=== PATIENT | male | born 1945 | race Caucasian/White ===

== ENCOUNTER 2017-10-17 14:47 | Inpatient (IN) | payer MEDICARE ==
[~2017-10-17] VITALS: Ht 177.8 cm; Wt 62.6 kg
[~2017-10-17 14:47] MED LIST: ASPIRIN EC81 MG PO; AZITHROMYCIN500 MG PO; BL ADULT ASA81 MG OR; CARDIO PO; CARVEDILOL3.125 MG PO; CARVEDILOL6.25 MG PO; COQ-1030 MG PO; FOLIC ACID1 MG PO; IBUPROFEN 200200 MG PO; OMEPRAZOLE20 MG PO; SAW PALMETTO450 MG PO; SIMVASTATIN40 MG PO; ZETIA10 MG OR; [UNRECOGNIZED DRUG - OTHER] PO
[2017-10-20] VITALS (7 sets, daily range): BP systolic 103–127; BP diastolic 50–86
[2017-10-20 10:29] LABS: HEMATOCRIT 37.1 % (39.0-50.0); HEMOGLOBIN 12.9 g/dl (14.0-18.0); IMMATURE GRANULOCYTES 0.3 % (0.0-1.0); MEAN CELL VOLUME 102.2 fL CALC (80.0-100.0); MEAN CORPUSCULAR HGB 35.5 pG CALC (26.0-32.0); MEAN CORPUSCULAR HGB CONC 34.8 g/L CALC (32.0-36.0); NEUT# 4.39 thou/uL (1.82-7.42); RED BLOOD COUNT 3.63 mill/uL (4.70-6.10); RED CELL DISTRI WIDTH 12.4 % (11.5-15.5)
[2017-10-20 10:45] LABS: ANION GAP 14 (6-22 (CALC)); BUN 24 mg/dL (8-23); BUN/CREATININE RATIO 24 (12-20 (CALC)); CALCIUM 9.9 mg/dL (8.4-10.2); CARBON DIOXIDE 24 mmol/l (22-30); CHLORIDE 111 mmol/l (95-108); GFR > 60 ML/MIN (>=60 (CALC)); GFR FOR AFR.AMER. > 60 ML/MIN (>=60 (CALC)); GLUCOSE 97 mg/dL (82-115); POTASSIUM 4.8 mmol/l (3.5-5.1); SODIUM 144 mmol/l (137-146)
[2017-10-20 10:48] LABS: ACT PARTIAL THROMBO TIME 24.5 SECONDS (20.0-32.5); PROTHROMBIN TIME 10.7 SECONDS (9.0-12.5)
[2017-10-21 03:04] VITALS: BP 109/69
[2017-10-21 06:55] LABS: HEMATOCRIT 35.6 % (39.0-50.0); HEMOGLOBIN 12.3 g/dl (14.0-18.0)
[2017-10-21 08:00] VITALS: BP 102/63
[2017-10-21 16:00] VITALS: BP 111/56
[2017-10-21 18:50] VITALS: BP 119/66
[2017-10-21 23:48] VITALS: BP 123/62
[2017-10-22 03:53] VITALS: BP 134/87
[2017-10-22 05:43] LABS: HEMATOCRIT 33.9 % (39.0-50.0); HEMOGLOBIN 11.7 g/dl (14.0-18.0); MEAN CELL VOLUME 101.8 fL CALC (80.0-100.0); MEAN CORPUSCULAR HGB 35.1 pG CALC (26.0-32.0); MEAN CORPUSCULAR HGB CONC 34.5 g/L CALC (32.0-36.0); RED BLOOD COUNT 3.33 mill/uL (4.70-6.10); RED CELL DISTRI WIDTH 12.4 % (11.5-15.5)
[2017-10-22 06:06] LABS: ANION GAP 14 (6-22 (CALC)); BUN 20 mg/dL (8-23); BUN/CREATININE RATIO 22 (12-20 (CALC)); CALCIUM 9.1 mg/dL (8.4-10.2); CARBON DIOXIDE 24 mmol/l (22-30); CHLORIDE 104 mmol/l (95-108); CREATININE 0.9 mg/dL (0.7-1.3); GFR > 60 ML/MIN (>=60 (CALC)); GFR FOR AFR.AMER. > 60 ML/MIN (>=60 (CALC)); GLUCOSE 106 mg/dL (82-115); POTASSIUM 4.2 mmol/l (3.5-5.1); SODIUM 138 mmol/l (137-146)
[2017-10-22 07:33] VITALS: BP 134/79
[2017-10-22 10:03] VITALS: BP 134/79
[2017-10-22] MEDS ORDERED: SURFAK240 MG/CAP PO (10:37)
[2017-10-22] MEDS ORDERED: PERCOCET 10/31 COMBO PO (10:37)
== END 2017-10-22 13:09 | disposition home or self-care (01) | DRG 483 ==
LOC: MS2 10-20 09:43
PROVIDERS: Internal Medicine; ADMIT Orthopaedic Surgery; ATTEND Orthopaedic Surgery
PROC: 0RRJ00Z Replacement of Right Shoulder Joint with Reverse Ball and Socket Synthetic Substitute, Open Approach (ICD-10-PCS; principal; 2017-10-20)
PROC: 0LS30ZZ Reposition Right Upper Arm Tendon, Open Approach (ICD-10-PCS; 2017-10-20)
DX: M19.011 Primary osteoarthritis, right shoulder (principal); F17.210 Nicotine dependence, cigarettes, uncomplicated; S46.211A Strain of muscle, fascia and tendon of other parts of biceps, right arm, initial encounter; S46.011A Strain of muscle(s) and tendon(s) of the rotator cuff of right shoulder, initial encounter; I25.10 Atherosclerotic heart disease of native coronary artery without angina pectoris; I25.2 Old myocardial infarction; K21.9 Gastro-esophageal reflux disease without esophagitis; X58.XXXA Exposure to other specified factors, initial encounter; Y93.H9 Activity, other involving exterior property and land maintenance, building and construction; Z95.5 Presence of coronary angioplasty implant and graft
CPT/HCPCS: J2710

== ENCOUNTER 2019-08-20 08:57 | Day surgery (SDC) | payer MEDICARE ==
[~2019-08-20 08:57] MED LIST changes: -ASPIRIN EC81 MG PO; +COQ10200 MG PO; +EC ASPIRIN325 MG PO; +PERCOCET 10/31 COMBO PO; +SURFAK240 MG/CAP PO; +[UNRECOGNIZED DRUG - OTHER] PO
[2019-08-20] MEDS ORDERED: ASPIRIN 81 LOW81 MG (09:15)
[2019-08-20 11:12] VITALS: BP 111/56
== END 2019-08-20 11:21 | disposition home or self-care (01) ==
LOC: ENDO 08:57 → ORM 13:15
PROVIDERS: ATTEND Surgery
PROC: 0DB38ZX Excision of Lower Esophagus, Via Natural or Artificial Opening Endoscopic, Diagnostic (ICD-10-PCS; principal; 2019-08-20)
DX: K22.5 Diverticulum of esophagus, acquired (principal); K21.0 Gastro-esophageal reflux disease with esophagitis; K44.9 Diaphragmatic hernia without obstruction or gangrene; I25.2 Old myocardial infarction; F17.210 Nicotine dependence, cigarettes, uncomplicated